=== PATIENT | female | born 1945 | race Caucasian/White ===

== ENCOUNTER 2021-09-24 13:10 | Outpatient (CLI) | payer MEDICARE ==
[2021-09-25 11:36] LABS: SARS-CoV-2 PCR by NAA Not Detected (NotDetected)
== END 2021-09-24 13:11 | disposition home or self-care (01) ==
LOC: LABBT 13:10
PROVIDERS: ATTEND Anesthesiology Pain Medicine
DX: Z01.818 Encounter for other preprocedural examination (principal); Z20.822 Contact with and (suspected) exposure to COVID-19
CPT/HCPCS: 93005; U0003; U0005; 93010

== ENCOUNTER 2021-09-29 10:49 | Day surgery (SDC) | payer MEDICARE ==
[2021-09-23 10:12] VITALS: BMI 30.1
[2021-09-29] MEDS ORDERED: CEFAZOLIN 1 GM VIAL ONE (11:09)
[2021-09-29] MEDS ORDERED: Sodium Chloride 0.9% 100 ML ONE (11:10)
[2021-09-29] MEDS ORDERED: Fentanyl 100 MCG/2 ML VIAL ONE (12:07)
[2021-09-29] MEDS ORDERED: Ketamine 50 MG/ML (10ML VIAL) ONE (12:10)
[2021-09-29] MEDS ORDERED: Propofol 500 MG/50 ML VIAL ONE (12:10)
[2021-09-29] MEDS ORDERED: Bupivacaine PF 0.5% 30 ML VIAL ONE (12:38)
[2021-09-29] MEDS ORDERED: EPINEPHrine 1 MG/ML AMP ONE (12:38)
[2021-09-29] MEDS ORDERED: Lidocaine 2% PF 5 ML VIAL ONE (12:38)
[2021-09-29] MEDS ORDERED: Ondansetron PF 4 MG/2 ML Vial ONE (12:57)
[2021-09-29] MEDS ORDERED: diphenhydrAMINE 50 MG/ML VIAL ONE (12:57)
== END 2021-09-29 15:43 | disposition home or self-care (01) ==
LOC: SDC 10:49
PROVIDERS: ATTEND Anesthesiology Pain Medicine
PROC: 0JH70DZ Insertion of Multiple Array Stimulator Generator into Back Subcutaneous Tissue and Fascia, Open Approach (ICD-10-PCS; principal; 2021-09-29)
PROC: 00HU3MZ Insertion of Neurostimulator Lead into Spinal Canal, Percutaneous Approach (ICD-10-PCS; 2021-09-29)
DX: M96.1 Postlaminectomy syndrome, not elsewhere classified (principal); G89.4 Chronic pain syndrome; M54.16 Radiculopathy, lumbar region; I10 Essential (primary) hypertension; E78.5 Hyperlipidemia, unspecified; I47.1 Supraventricular tachycardia; J45.909 Unspecified asthma, uncomplicated; G47.30 Sleep apnea, unspecified; M19.90 Unspecified osteoarthritis, unspecified site; K21.9 Gastro-esophageal reflux disease without esophagitis; M81.0 Age-related osteoporosis without current pathological fracture; E66.9 Obesity, unspecified; Z68.30 Body mass index [BMI] 30.0-30.9, adult; Z79.899 Other long term (current) drug therapy; Z88.8 Allergy status to other drugs, medicaments and biological substances
CPT/HCPCS: 72020; 76000; C1713; J0171; J0690; J1200; J2001; J2405; J2704; J3010; J3490; S0020